=== PATIENT | male | born 1975 | race Caucasian/White ===

== ENCOUNTER 2023-09-14 14:00 | Emergency (ER) | payer SELFPAY ==
[~2023-09-14] VITALS: Ht 182.9 cm; Wt 99.0 kg
[2023-09-14 14:09] VITALS: TEMP 98.5; O2SAT 98
[2023-09-14 17:15] VITALS: BP 151/99; PULSE 101; RESP 20
[2023-09-14] MEDS ORDERED: KETOROLAC 30MG/ML VIAL IM ONE (17:15)
[2023-09-14] MEDS ORDERED: NAPR-1176 MT (17:24)
[2023-09-14] MEDS ORDERED: CYCL5TAB MT (17:24)
[2023-09-14] MEDS ORDERED: LIDO700A15 TP (17:24)
== END 2023-09-14 18:28 | disposition home or self-care (01) ==
LOC: ER 14:00
DX: M54.31 Sciatica, right side (principal); M51.26 Other intervertebral disc displacement, lumbar region
CPT/HCPCS: 99283; 96372; J1885